=== PATIENT | male | born 1985 | race Asian ===

== ENCOUNTER 2016-05-11 15:47 | Emergency (ER) | payer MEDICAID ==
[~2016-05-11] VITALS: Ht 180.3 cm; Wt 79.4 kg
[2016-05-11 15:52] VITALS: BP 138/76; PULSE 72; RESP 16; TEMP 97.5; O2SAT 100
--- NOTE | 2016-05-11 15:52 | NUR ---
Patient triaged and placed in waiting room. VSS and patient appears in no acute distress at this time. Accompanied by friend, awaiting available bed, and MD notified of need for MSE.
--- NOTE | 2016-05-11 16:02 | NUR ---
ER MD Coy evaluated patient in triage room
--- NOTE | 2016-05-11 16:15 | NUR ---
Patient to ER bed 2 to gown for evaluation. Side rails up. Report given to Rom FARRELL.
--- NOTE | 2016-05-11 16:40 | NUR ---
Splint applied.Pt tolerated well.
[2016-05-11] MEDS ORDERED: KETOROLAC TROMETHAMINE 60 MG/2 ML VIAL IM ONE (16:45)
[2016-05-11 16:50] VITALS: BP 138/76; PULSE 72; RESP 16; TEMP 97.5; O2SAT 100
--- NOTE | 2016-05-11 16:50 | NUR ---
Patient given written and verbal discharge instructions and verbalizes understanding. ER MD discussed with patient the results and treatment provided. Given copies of tests performed in ER. Patient in stable condition. ID arm band removed. IV catheter removed intact and dressing applied, no active bleeding. Rx of motrin given. Patient educated on pain management and to follow up with PMD. Pain Scale 2. Opportunity for questions provided and answered.
== END 2016-05-11 16:50 | disposition home or self-care (01) ==
LOC: SED 15:47
DX: S63.501A Unspecified sprain of right wrist, initial encounter (principal); R03.0 Elevated blood-pressure reading, without diagnosis of hypertension; W17.89XA Other fall from one level to another, initial encounter; Y93.31 Activity, mountain climbing, rock climbing and wall climbing; Y99.8 Other external cause status; Y92.89 Other specified places as the place of occurrence of the external cause
CPT/HCPCS: 99284